=== PATIENT | female | born 1960 | race Caucasian/White ===

== ENCOUNTER → 2017-09-29 | Outpatient (CLI) | payer BC ==
--- NOTE | 2017-09-30 07:47 | MM ---
Reason for exam: additional evaluation requested from prior study. Last mammogram was performed 13 years and 11 months ago. History: Patient is postmenopausal. Family history of breast cancer in maternal aunt. Physical Findings: Nurse did not find any significant physical abnormalities on exam. MG 3D Diag Mammo W/Cad IZABELA Bilateral CC and MLO view(s) were taken. Prior study comparison: May 12, 2015, mammogram. The breast tissue is heterogeneously dense. This may lower the sensitivity of mammography. Stable mole superior left breast. No significant new findings when compared with previous films. These results were verbally communicated with the patient and result sheet given to the patient on 09/29/17. ASSESSMENT: Negative, BI-RAD 1 RECOMMENDATION: Routine screening mammogram of both breasts in 1 year.
== END | disposition home or self-care (01) ==
LOC: RADMAMWWP 14:14
PROVIDERS: ATTEND Family Medicine
DX: R92.8 Other abnormal and inconclusive findings on diagnostic imaging of breast (principal)
CPT/HCPCS: 77066; G0279

== ENCOUNTER 2020-06-14 09:31 | Day surgery (SDC) | payer OTHER ==
[2020-06-09 13:10] VITALS: BMI 22.4
[~2020-06-14 09:31] MED LIST: LIDOCAINE 1% (10MG/ML) FOR IV START INTRADERMA PRN
[2020-06-14 10:21] VITALS: RESP 16; TEMP 98.2
[2020-06-14] MEDS: LACTATED RINGERS 1,000 ML IV SCH ×2 (10:26→11:13)
[2020-06-14] MEDS ORDERED: PROPOFOL 10 MG/ML 100 ML VIAL IV ONE (11:18)
[2020-06-14] MEDS ORDERED: LIDOCAINE 1% INJ 10MG/ML (20 ML MDV) ONE (11:18)
--- NOTE | 2020-06-14 11:38 | P.PCN ---
Date of Procedure: 06/14/20 Procedure(s) Performed: BRIEF HISTORY: Patient is a 59-year-old pleasant female scheduled for an elective colonoscopy as a part of screening for colorectal neoplasia PROCEDURE PERFORMED: Colonoscopy with snare polypectomy. PREOPERATIVE DIAGNOSIS: Screening for colon cancer. IV sedation per Anesthesia. PROCEDURE: After informed consent was obtained, the patient, was brought into the endoscopy unit. IV sedation was administered by Anesthesia under continuous monitoring. Digital rectal examination was normal. Initially the Olympus CF-160 flexible video colonoscope was then inserted in the rectum, gradually advanced into the cecum without any difficulty. Careful examination was performed as the scope was gradually being withdrawn. Ileocecal valve and the appendiceal orifice were visualized and appeared normal. Prep was excellent. Mucosa of the cecum, ascending colon, transverse colon, descending colon, sigmoid colon, and rectum appeared normal. In the distal rectum there was a 1 cm polyp removed by snare polypectomy. Retroflexion was performed in the rectum and no lesions were seen. The patient tolerated the procedure well. IMPRESSION: 1 cm distal rectal polyp status post polypectomy Rest of the colon appeared normal. RECOMMENDATIONS: Findings of this examination were discussed with the patient as well as a family. He was advised to follow with the biopsy results. If the biopsy shows an adenoma she can have a repeat colonoscopy in 3.
[2020-06-14 11:57] VITALS: BP 134/84; PULSE 75
== END 2020-06-14 12:40 | disposition home or self-care (01) ==
LOC: ORWHC2ENDO 09:31
PROVIDERS: ATTEND Internal Medicine Gastroenterology
DX: Z12.11 Encounter for screening for malignant neoplasm of colon (principal); D12.8 Benign neoplasm of rectum; F17.210 Nicotine dependence, cigarettes, uncomplicated; Z98.890 Other specified postprocedural states; Z79.899 Other long term (current) drug therapy
CPT/HCPCS: 45385; J2001; J2704; 88305

== ENCOUNTER → 2020-07-27 | Outpatient (CLI) | payer OTHER ==
--- NOTE | 2020-07-28 13:44 | MM ---
Reason for exam: screening (asymptomatic). Last mammogram was performed 2 years and 10 months ago. History: Patient is postmenopausal. Family history of breast cancer in maternal aunt. Physical Findings: A clinical breast exam by your physician is recommended on an annual basis and results should be correlated with mammographic findings. MG Screening Mammo w CAD Bilateral CC and MLO view(s) were taken. Prior study comparison: September 29, 2017, bilateral MG 3d diag mammo w/cad IZABELA. May 12, 2015, mammogram. There are scattered fibroglandular densities. No significant changes when compared with prior studies. ASSESSMENT: Benign, BI-RAD 2 RECOMMENDATION: Routine screening mammogram of both breasts in 1 year.
== END | disposition home or self-care (01) ==
LOC: RADMAMWWP 09:28
PROVIDERS: ATTEND Family Medicine
DX: Z12.31 Encounter for screening mammogram for malignant neoplasm of breast (principal)
CPT/HCPCS: 77067

== ENCOUNTER → 2021-02-21 | Outpatient (CLI) | payer BC ==
--- NOTE | 2021-02-21 14:41 | MM ---
Reason for exam: clinical finding. Last mammogram was performed 7 months ago. History: Patient is postmenopausal. Family history of breast cancer in maternal aunt. Physical Findings: Nurse did not find any significant physical abnormalities on exam. MG 3D Diag Mammo W/Cad LT CC and MLO view(s) were taken of the left breast. Prior study comparison: July 27, 2020, bilateral MG screening mammo w CAD. September 29, 2017, bilateral MG 3d diag mammo w/cad IZABELA. There are scattered fibroglandular densities. There are benign appearing round calcifications in the left breast. There is chronic nodularity in the left breast. Asymmetric breast tissue, stable. These results were verbally communicated with the patient and result sheet given to the patient on 02/21/21. ASSESSMENT: Benign, BI-RAD 2 RECOMMENDATION: Return to routine screening mammogram schedule for both breasts. Manage on a clinical basis with regard to left breast pain. Back on schedule for July 2021.
== END | disposition home or self-care (01) ==
LOC: RADMAMWWP 12:57
PROVIDERS: ATTEND Family Medicine
DX: R92.1 Mammographic calcification found on diagnostic imaging of breast (principal); N64.89 Other specified disorders of breast; Z78.0 Asymptomatic menopausal state; Z80.3 Family history of malignant neoplasm of breast
CPT/HCPCS: 77061; 77065

== ENCOUNTER → 2022-07-31 | Outpatient (CLI) | payer BC ==
--- NOTE | 2022-08-01 08:23 | MM ---
Reason for Exam: Screening (asymptomatic). Last mammogram was performed 2 year(s) and 0 month(s) ago. Patient History: Menarche at age 13. First Full-Term at age 22. Postmenopausal. Maternal aunt had breast cancer. Risk Values: Jeanie 5 year model risk: 1.3%. NCI Lifetime model risk: 6.4%. Prior Study Comparison: 09/29/2017 Bilateral Diagnostic Mammogram, [facility]. 07/27/2020 Bilateral Screening Mammogram, [facility]. 02/21/2021 Left Diagnostic Mammogram, [facility]. Tissue Density: There are scattered fibroglandular densities. Findings: Analyzed By CAD. There is no suspicious group of microcalcifications or new suspicious mass in either breast. No significant change from prior exams. Overall Assessment: Benign, BI-RAD 2 Management: Screening Mammogram of both breasts in 1 year. A clinical breast exam by your physician is recommended on an annual basis and results should be correlated with mammographic findings. Electronically signed and approved by: Tre Ramirez D.O.
== END | disposition home or self-care (01) ==
LOC: RADMAMWWP 12:48
PROVIDERS: ATTEND Family Medicine
DX: Z12.31 Encounter for screening mammogram for malignant neoplasm of breast (principal); Z78.0 Asymptomatic menopausal state; Z80.3 Family history of malignant neoplasm of breast
CPT/HCPCS: 77063; 77067